=== PATIENT | female | born 2005 | race Caucasian/White ===

== ENCOUNTER 2024-06-15 15:56 | Emergency (ER) | payer OTHER ==
[~2024-06-15] VITALS: Ht 165.1 cm; Wt 67.3 kg
[2024-06-15 17:18] LABS: COVID AG,FIA SOURCE NASAL SWAB
[2024-06-15 17:53] LABS: INFLUENZA TYPE A NEGATIVE FOR TYPE A (NEGATIVE); INFLUENZA TYPE B NEGATIVE FOR TYPE B (NEGATIVE)
[2024-06-15 18:05] VITALS: BP 117/77; PULSE 82; RESP 16; TEMP 101.2
[2024-06-15 18:10] LABS: SARS-COV2 (COVID) ANTIGEN,FIA Positive (Negative)
[2024-06-15] MEDS ORDERED: NIRM1TAB10 PO (19:13)
[2024-06-15] MEDS: ACETAMINOPHEN 325 MG TABLET PO ONE (19:14)
== END 2024-06-15 19:23 | disposition home or self-care (01) ==
LOC: EMS 15:56
DX: U07.1 COVID-19 (principal); R51.9 Headache, unspecified; M79.10 Myalgia, unspecified site; R53.83 Other fatigue
CPT/HCPCS: 87804; 99283